=== PATIENT | male | born 1960 | race Caucasian/White ===

== ENCOUNTER 2016-08-28 20:41 | Emergency (ER) ==
[2016-08-28 20:45] VITALS: BP 161/88; TEMP 98.8; BMI 26.4
--- NOTE | 2016-08-28 20:48 | ED.PDOC ---
General ED Provider: Dr. JUSTIN LARA-ER Chief Complaint: Bite Stated Complaint: was bitten by a cat on the thumb--its swelling Time Seen by Physician: 20:45 Mode of Arrival: Walk-In Information Source: Patient Exam Limitations: No limitations Nursing and Triage Documentation Reviewed and Agree: Yes Skin Complaint Exam - Skin/Soft Tissue Complaint/Exam Onset/Duration: 1 hr Symptoms Are: Still present Timing: Constant Initial Severity: Mild Current Severity: Mild Location: right thumb Character: Reports: Redness, Swelling, Raised Aggravating: Reports: None Alleviating: Reports: None Associated Signs and Symptoms: Reports: Tenderness Related Surgical History: Reports: None Recent Exposure to Others w/Similar Symptoms: Yes Skin Findings: Present: Erythema Joint Tenderness Present: No Differential Diagnoses: Cellulitis, Infection Review of Systems - Review Of Systems Constitutional: Reports: No symptoms Eyes: Reports: No symptoms Ears, Nose, Mouth, Throat: Reports: No symptoms Respiratory: Reports: No symptoms Cardiac: Reports: No symptoms GI: Reports: No symptoms : Reports: No symptoms Musculoskeletal: Reports: No symptoms Skin: Reports: Other Neurological: Reports: No symptoms Endocrine: Reports: No symptoms Hematologic/Lymphatic: Reports: No symptoms All Other Systems: Reviewed and Negative Past Medical History - Past Medical History Previously Healthy: Yes Endocrine: Reports: Unknown Cardiovascular: Reports: Unknown Respiratory: Reports: Unknown Hematological: Reports: Unknown Gastrointestinal: Reports: Unknown Genitourinary: Reports: Unknown Neuro/Psych: Reports: Unknown Musculoskeletal: Reports: Unknown Cancer: Reports: Unknown - Surgical History General Surgical History: Reports: Unknown - Family History Family History: Reports: Unknown - Social History Smoking Status: Never smoker Hx Substance Use: No Alcohol Screening: None - Immunizations Tetanus Shot up to Date: Yes Physical Exam - Physical Exam Appearance: Well-appearing, No pain distress, Well-nourished Pain Distress: Mild Eyes: ERNESTO ENT: Ears normal, Nose normal, Oropharynx normal Neck: Supple Respiratory: Airway patent, Breath sounds clear, Breath sounds equal, Respirations nonlabored Cardiovascular: RRR, Pulses normal, No rub, No murmur GI/: Soft, Nontender, No masses, Bowel sounds normal, No Organomegaly Musculoskeletal: Normal strength, ROM intact, No edema, No calf tenderness Skin: Warm, Dry, Normal color Neurological: Sensation intact, Motor intact, Reflexes intact, Cranial nerves intact, Alert, Oriented Psychiatric: Affect appropriate Critical Care Note - Critical Care Note Total Time (mins): 0 Course - Course Orders, Labs, Meds: Orders Category Date Time Status Wound care [ED WOUND CARE] .ONCE EMERGENCY 08/28/16 20:43 Active Vital Signs: Temp Pulse Resp BP Pulse Ox 08/28/16 20:42 98.8 F 88 20 161/88 H 98 Departure - Departure Time of Disposition: 20:47 Disposition: HOME SELF-CARE Discharge Problem: Cat bite of finger Qualifiers: Encounter type: initial encounter Qualifier Code: (S61.259A) Open bite of unspecified finger without damage to nail, initial encounter Instructions: Animal Bite (ED) Condition: Good Pt referred to PMD for follow-up: Yes Additional Instructions: clindamycin 300mg tid x 5 days plus cipro 500mg bid x 5 dasy--keep clean--f/u with pcp in 48hrs to recheck Allergies/Adverse Reactions: Allergies Penicillins Adverse Reaction (Unverified 08/28/16 20:45) Home Medications: Ambulatory Orders Lisinopril [Zestril] 20 mg PO DAILY 07/14/13 Disposition Discussed With: Patient, Family
== END 2016-08-28 21:15 | disposition home or self-care (01) ==
LOC: ED 20:41
DX: S61.051A Open bite of right thumb without damage to nail, initial encounter (principal); W55.01XA Bitten by cat, initial encounter
CPT/HCPCS: 99283

== ENCOUNTER 2017-12-27 18:38 | Emergency (ER) ==
[2017-12-27 18:38] VITALS: BMI 26.4
[2017-12-27 18:44] VITALS: BP 147/74; TEMP 97.9
[2017-12-27] MEDS ORDERED: TORADOL IM STA (18:51)
--- NOTE | 2017-12-27 20:03 | DI ---
Exam: Three views of the left wrist. Comparison: None available. Reason for exam: Fall with injury to left wrist history of previous surgery. FINDINGS: Operative changes are seen after previous fixation of the left wrist. The imaged osseous structures appear fused. There is no acute fracture or malalignment. No unexplained calcific soft t issue density or radiopaque retained foreign body. Impression: No acute fracture is seen in the left wrist. Imaging findings are consistent with previous fixation and fusion of the left wrist architecture
--- NOTE | 2017-12-27 20:08 | DI ---
Exam: Three views of the right shoulder. Comparison: 07/14/2013. Reason for exam: Trauma. FINDINGS: No acute fracture or dislocation. The joint space appears well maintained. The right cla vicle is intact. Impression: No acute fracture or dislocation is seen in the right shoulder.
--- NOTE | 2017-12-27 20:09 | DI ---
Exam: Two views of the right humerus Comparison: Right shoulder x-rays performed 07/14/2013. Reason for exam: Trauma. FINDINGS: No acute fracture or malalignment. The cortices appear intact. No unexplained calcific s oft tissue density or radiopaque retained foreign body. Impression: No acute fracture or malalignment is seen in the right humerus.
--- NOTE | 2017-12-27 20:19 | ED.PDOC ---
General ED Provider: Dr. ANJALI PEACE Chief Complaint: Fall Stated Complaint: patient fell while climbing a [place] 3 days ago. Time Seen by Physician: 19:20 Mode of Arrival: Walk-In Information Source: Patient Exam Limitations: No limitations Nursing and Triage Documentation Reviewed and Agree: Yes Does patient meet sepsis criteria?: No System Inflammatory Response Syndrome: Not Applicable Sepsis Protocol: For patient's 13 years and over: Temp is 96.8 and below OR 101 and greater Pulse >90 BPM Resp >20/minute Acutely Altered Mental Status Are patient's symptoms suggestive of a new infection, such as: -Pneumonia -Skin, Soft Tissue -Endocarditis -UTI -Bone, Joint Infection -Implantable Device -Acute Abdominal Infection -Wound Infection -Meningitis -Blood Stream Catheter Infection -Unknown Musculoskeletal Complaint Exam - Shoulder Pain Complaint/Exam Mechanism of Injury: Reports: Trauma Onset/Duration: 2 DAYS AGO Symptoms Are: Still present Timing: Constant Initial Severity: Severe Current Severity: Moderate Location: Reports: Diffuse ( ROTATOR CUFF AREA ) Character: Reports: Aching, Throbbing, Stiffness Alleviating: Reports: Ice Aggravating: Reports: Movement, Lifting, Internal rotation, Abduction Associated Signs and Symptoms: Denies: Swelling, Redness, Bruising, Fever, Weakness, Numbness, Tingling Related History: Reports: Similar episode, Dominant hand right DVT Risk Factors: Reports: None Septic Arthritis Risk Factors: Reports: None Related Surgical History: Reports: Other Orthopedic Surgery (BILATERAL ROTATOR CUFF SURGERY, REATTACHED BICEP RIGHT ARM.) Shoulder Findings: Present: Rotation. Absent: Laceration, Erythema, Warmth, Blisters, Other joint pain, Foreign body Tenderness: Present: Proximal humerus, Rotator cuff muscles Limited Range of Motion: Present: Abduction, External rotation, Rotator cuff muscles Differential Diagnoses: AC Seperation, Dislocation, Closed Fracture, Rotator Cuff Injury, Sprain, Strain Review of Systems - Review Of Systems Constitutional: Reports: No symptoms Eyes: Reports: No symptoms Ears, Nose, Mouth, Throat: Reports: No symptoms Respiratory: Reports: No symptoms Cardiac: Reports: No symptoms GI: Reports: No symptoms : Reports: No symptoms Musculoskeletal: Reports: Joint pain (Right shoulder , left wrist ) Skin: Reports: No symptoms Neurological: Reports: No symptoms Endocrine: Reports: No symptoms Hematologic/Lymphatic: Reports: No symptoms All Other Systems: Reviewed and Negative Past Medical History - Past Medical History Previously Healthy: Yes Endocrine: Reports: None, Unknown Cardiovascular: Reports: Hypertension Respiratory: Reports: None, Unknown Hematological: Reports: None Gastrointestinal: Reports: None Genitourinary: Reports: None Neuro/Psych: Reports: None, Unknown Musculoskeletal: Reports: Joint Pain, Other (BILATERAL ROTATOR CUFF INJURY) Cancer: Reports: None - Surgical History General Surgical History: Reports: Orthopedic (BILATERAL ROTATOR CUFF SURGERY, REATTACHED BICEP RIGHT ARM, WRIST SURGERY) - Family History Family History: Reports: Unknown - Social History Smoking Status: Never smoker Hx Substance Use: No Alcohol Screening: None Physical Exam - Physical Exam Appearance: Ill-appearing Ill-appearing: Mild Pain Distress: Severe Neck: Supple Respiratory: Airway patent, Breath sounds clear, Breath sounds equal, Respirations nonlabored Cardiovascular: RRR, Pulses normal, No rub, No murmur GI/: Soft, Nontender, No masses, Bowel sounds normal, No Organomegaly Musculoskeletal: Limited ROM (RIGHT SHOULDER ) Skin: Warm Neurological: Sensation intact, Alert, Oriented Psychiatric: Affect appropriate, Mood appropriate Interpretation - Radiology Interpretation Radiology Interpretation By: Radiologist Radiology Results: Negative Exam Interpreted: Other (right shoulder and left wrist ) Critical Care Note - Critical Care Note Total Time (mins): 0 Course - Course Orders, Labs, Meds: Orders Category Date Time Status Ketorolac Tromethamine [Toradol] MEDS 12/27/17 18:51 Discontinued 60 mg IM ONCE STA HUMERUS, RIGHT 2 VIEWS Stat RADS 12/27/17 18:50 Completed SHOULDER, RIGHT MIN 2V Stat RADS 12/27/17 18:50 Completed WRIST, LEFT 3 VIEWS Stat RADS 12/27/17 18:50 Completed Medications Discontinued Medications Generic Name Dose Route Start Last Admin Trade Name Freq PRN Reason Stop Dose Admin Ketorolac Tromethamine 60 mg 12/27/17 18:51 12/27/17 19:01 Toradol IM 12/27/17 18:52 60 mg ONCE STA Administration Vital Signs: Temp Pulse Resp BP Pulse Ox 12/27/17 18:38 97.9 F 91 H 16 147/74 H 97 Departure - Departure Time of Disposition: 20:18 Disposition: HOME SELF-CARE Discharge Problem: Rotator cuff (capsule) sprain Qualifiers: Encounter type: initial encounter Laterality: right Qualified Code(s): S43.421A - Sprain of right rotator cuff capsule, initial encounter Wrist injury Qualifiers: Encounter type: initial encounter Laterality: left Qualified Code(s): S69.92XA - Unspecified injury of left wrist, hand and finger(s), initial encounter Instructions: Rotator Cuff Injury (ED), Wrist Sprain (ED) Condition: Stable Pt referred to PMD for follow-up: Yes IPMP verified?: No Additional Instructions: Follow up with PCP for MRI and Orthopedic consult Take Over the counter medications. Prescriptions: Ibuprofen [Motrin] 600 mg PO Q6H PRN #30 tablet PRN Reason: Analgesia Tramadol HCl [Ultram] 50 mg PO Q6H PRN #25 tablet PRN Reason: Severe Pain Allergies/Adverse Reactions: Allergies Penicillins Adverse Reaction (Verified 12/27/17 18:40) Home Medications: Ambulatory Orders Lisinopril [Zestril] 20 mg PO DAILY 07/14/13 Ibuprofen [Motrin] 600 mg PO Q6H PRN #30 tablet 12/27/17 Tramadol HCl 50 mg PO Q4-6H PRN 12/27/17 Tramadol HCl [Ultram] 50 mg PO Q6H PRN #25 tablet 12/27/17 Disposition Discussed With: Patient, Family
== END 2017-12-27 20:36 | disposition home or self-care (01) ==
LOC: ED 18:38
DX: S43.421A Sprain of right rotator cuff capsule, initial encounter (principal); S69.92XA Unspecified injury of left wrist, hand and finger(s), initial encounter; W17.89XA Other fall from one level to another, initial encounter
CPT/HCPCS: 96372; 99282

== ENCOUNTER 2018-03-22 13:00 | Emergency (ER) ==
[2018-03-22 13:11] VITALS: BP 151/80; TEMP 99.2; BMI 25.7
[2018-03-22] MEDS ORDERED: TORADOL IM STA (15:56)
--- NOTE | 2018-03-22 16:01 | ED.PDOC ---
General ED Provider: Dr. JUSTIN ANDINO Chief Complaint: Knee Pain/Injury Stated Complaint: Lt Knee Pain. Patient presents with c/o Pain left lateral knee. 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 States twisted his knee feeling a tearing stretching. Bumped same knee a few days ago getting out of a semi. He injured it then as well, but was able to walk on it. Currently Pain is much worse. Took ALeve without relief. Time Seen by Physician: 15:40 Mode of Arrival: Wheelchair Information Source: Patient Exam Limitations: Clinical condition, Physical impairment Primary Care Provider: GRZEGORZ MORAN Nursing and Triage Documentation Reviewed and Agree: Yes Does patient meet sepsis criteria?: No System Inflammatory Response Syndrome: Not Applicable Sepsis Protocol: For patient's 13 years and over: Temp is 96.8 and below OR 101 and greater Pulse >90 BPM Resp >20/minute Acutely Altered Mental Status Are patient's symptoms suggestive of a new infection, such as: -Pneumonia -Skin, Soft Tissue -Endocarditis -UTI -Bone, Joint Infection -Implantable Device -Acute Abdominal Infection -Wound Infection -Meningitis -Blood Stream Catheter Infection -Unknown Musculoskeletal Complaint Exam - Knee Pain Complaint/Exam Mechanism of Injury: Reports: Trauma Symptoms Are: Still present Onset of Pain: Reports: Immediate Initial Severity: Severe Current Severity: Severe Location: Reports: Diffuse, Discrete Character: Reports: Aching Alleviating: Reports: Rest Aggravating: Reports: Weight bearing, Prolonged standing, Stairs Associated Signs and Symptoms: Reports: Swelling, Redness, Weakness Able to Bear Weight: Yes (minimal due to the pain) Related History: Reports: Occupational injury Gout Risk Factors: Reports: None Knee Findings: Present: Swelling Tenderness: Present: Pre-patellar, Joint Limited Range of Motion: Present: Active, Passive Differential Diagnoses: Internal Derangement, Strain Review of Systems - Review Of Systems Constitutional: Reports: No symptoms Eyes: Reports: No symptoms Ears, Nose, Mouth, Throat: Reports: No symptoms Respiratory: Reports: No symptoms Cardiac: Reports: No symptoms GI: Reports: No symptoms : Reports: No symptoms Musculoskeletal: Reports: No symptoms, Joint pain, Joint swelling, Muscle pain, Muscle stiffness Skin: Reports: No symptoms Neurological: Reports: No symptoms Endocrine: Reports: No symptoms Hematologic/Lymphatic: Reports: No symptoms All Other Systems: Reviewed and Negative Past Medical History - Past Medical History Previously Healthy: Yes Endocrine: Reports: None, Unknown Cardiovascular: Reports: Hypertension Respiratory: Reports: None, Unknown Hematological: Reports: None Gastrointestinal: Reports: None Genitourinary: Reports: None Neuro/Psych: Reports: None, Unknown Musculoskeletal: Reports: Joint Pain, Other (BILATERAL ROTATOR CUFF INJURY) Cancer: Reports: None - Surgical History General Surgical History: Reports: Orthopedic (BILATERAL ROTATOR CUFF SURGERY, REATTACHED BICEP RIGHT ARM, WRIST SURGERY) - Family History Family History: Reports: Unknown - Social History Smoking Status: Never smoker Hx Substance Use: No Alcohol Screening: None Physical Exam - Physical Exam Appearance: Well-appearing, Thin Ill-appearing: None Pain Distress: Moderate Eyes: ERNESTO, EOMI, Conjunctiva clear ENT: Ears normal, Nose normal, Oropharynx normal Respiratory: Airway patent, Breath sounds clear, Breath sounds equal, Respirations nonlabored Cardiovascular: RRR, Pulses normal, No rub, No murmur GI/: Soft, Nontender, No masses, Bowel sounds normal, No Organomegaly Musculoskeletal: Normal strength, ROM intact, No edema, No calf tenderness, Limited ROM (lt knee joint) Skin: Normal color Neurological: Sensation intact, Motor intact, Reflexes intact, Cranial nerves intact, Alert, Oriented Psychiatric: Affect appropriate, Mood appropriate Interpretation - Radiology Interpretation Radiology Results: Negative Exam Interpreted: CT Scan Re-Evaluation - Re-Evaluation Time of Re-Evaluation: 17:15 Status: Unchanged Vital Signs Stable: Yes Appearance: NAD Lungs: Clear Skin: Warm and Dry Neuro: Alert and Oriented X3 CV: RRR Critical Care Note - Critical Care Note Total Time (mins): 0 Course - Course Orders, Labs, Meds: Orders Category Date Time Status Ketorolac Tromethamine [Toradol] MEDS 03/22/18 15:56 Discontinued 30 mg IM ONCE STA CT KNEE LEFT WITHOUT CONTRAST Stat RADS 03/22/18 15:57 Taken Medications Discontinued Medications Generic Name Dose Route Start Last Admin Trade Name Freq PRN Reason Stop Dose Admin Ketorolac Tromethamine 30 mg 03/22/18 15:56 03/22/18 16:10 Toradol IM 03/22/18 15:57 30 mg ONCE STA Administration Vital Signs: Temp Pulse Resp BP Pulse Ox 03/22/18 13:01 99.2 F 85 20 151/80 H 96 Departure - Departure Time of Disposition: 17:10 Disposition: HOME SELF-CARE Discharge Problem: Left knee sprain Instructions: Knee Sprain (ED) Condition: Fair Pt referred to PMD for follow-up: Yes (Follow up 3 days/see ortho) IPMP verified?: No Additional Instructions: Continue Ice elevate Limit bearing ambulation Take meds for pain control Follow up ortho in next few days Allergies/Adverse Reactions: Allergies Penicillins Adverse Reaction (Verified 12/27/17 18:40) Home Medications: Ambulatory Orders Lisinopril [Zestril] 20 mg PO DAILY 07/14/13 Ibuprofen [Motrin] 600 mg PO Q6H PRN #30 tablet 12/27/17 Tramadol HCl 50 mg PO 3-4XD #20 tablet 03/22/18
--- NOTE | 2018-03-22 16:55 | CT ---
EXAM: CT scan of the left knee without contrast HISTORY: Of twisting injury TECHNIQUE: Helical imaging of the left knee was performed without contrast. Axial images and samuel l and sagittal reconstructions were provided for interpretation. FINDINGS: The patella appears intact. No acute abnormalities are seen within the distal femur and p roximal tibia. There is no joint effusion. The proximal fibula appears intact. IMPRESSION: No acute fracture dislocation seen within the left knee.
== END 2018-03-22 17:27 | disposition home or self-care (01) ==
LOC: ED 13:00
DX: S83.92XA Sprain of unspecified site of left knee, initial encounter (principal); X50.1XXA Overexertion from prolonged static or awkward postures, initial encounter
CPT/HCPCS: 96372; 99283

== ENCOUNTER 2018-10-26 14:44 | Outpatient (CLI) | END 2018-10-26 14:45 | disposition home or self-care (01) | LOC: RHC-LAB 14:44 → FCC-LAB 14:45 | PROVIDERS: ATTEND Family Medicine | DX: I10 Essential (primary) hypertension (principal) | CPT/HCPCS: 36415; 80053; 80061 ==